=== PATIENT | male | born 1955 | race Caucasian/White ===

== ENCOUNTER → 2020-11-04 | Outpatient (CLI) | payer OTHER ==
[~2020-11-04] MED LIST: ADULT LOW DOSE81 MG PO; ALLEGRA-D 12 H1 EAC1 PO; ASPIRIN325 PO; CO Q-10100 MG PO; LIPITOR40 MG PO; NEXIUM; PLAVIX 75 MG TA75 MG PO; TRICOR; WELCHOL 625 MG625 MG PO
== END ==
LOC: SJCVC 09:55
PROVIDERS: ATTEND Internal Medicine Cardiovascular Disease
DX: I45.10 Unspecified right bundle-branch block (principal); R94.31 Abnormal electrocardiogram [ECG] [EKG]; I25.10 Atherosclerotic heart disease of native coronary artery without angina pectoris; I10 Essential (primary) hypertension; E78.00 Pure hypercholesterolemia, unspecified; E11.9 Type 2 diabetes mellitus without complications; Z79.84 Long term (current) use of oral hypoglycemic drugs; Z79.82 Long term (current) use of aspirin; Z79.899 Other long term (current) drug therapy

== ENCOUNTER → 2021-01-21 | Outpatient (CLI) | payer OTHER | LOC: SJCVC 08:37 | PROVIDERS: ATTEND Internal Medicine Cardiovascular Disease | DX: E78.00 Pure hypercholesterolemia, unspecified (principal); I25.10 Atherosclerotic heart disease of native coronary artery without angina pectoris; I10 Essential (primary) hypertension; E78.5 Hyperlipidemia, unspecified; Z79.82 Long term (current) use of aspirin; Z79.899 Other long term (current) drug therapy ==

== ENCOUNTER → 2021-05-01 | Outpatient (CLI) | payer OTHER | LOC: SJCVC 09:55 | PROVIDERS: ATTEND Internal Medicine Cardiovascular Disease | DX: E78.00 Pure hypercholesterolemia, unspecified (principal); I25.10 Atherosclerotic heart disease of native coronary artery without angina pectoris; I10 Essential (primary) hypertension; E78.5 Hyperlipidemia, unspecified; Z79.82 Long term (current) use of aspirin; Z79.899 Other long term (current) drug therapy ==

== ENCOUNTER → 2021-05-11 | Outpatient (CLI) | payer OTHER | LOC: SJCVCIMAG 07:22 | PROVIDERS: ATTEND Internal Medicine Cardiovascular Disease | DX: I45.10 Unspecified right bundle-branch block (principal); R00.0 Tachycardia, unspecified; R06.00 Dyspnea, unspecified; R53.83 Other fatigue; I10 Essential (primary) hypertension; I25.10 Atherosclerotic heart disease of native coronary artery without angina pectoris; E78.00 Pure hypercholesterolemia, unspecified; E11.9 Type 2 diabetes mellitus without complications; Z95.5 Presence of coronary angioplasty implant and graft; Z79.82 Long term (current) use of aspirin; Z79.84 Long term (current) use of oral hypoglycemic drugs; Z79.899 Other long term (current) drug therapy; Z82.49 Family history of ischemic heart disease and other diseases of the circulatory system ==

== ENCOUNTER 2021-05-19 07:56 | Observation (INO) | payer OTHER ==
[~2021-05-19] VITALS: Ht 175.3 cm; Wt 102.1 kg
[2021-05-19 08:14] VITALS: BP 136/58
[2021-05-19] MEDS ORDERED: DECARA1250 MCG PO (08:36)
[2021-05-19] MEDS ORDERED: METFORMIN HCL500 M3 PO (08:37)
[2021-05-19] MEDS ORDERED: COZAAR 25 MG TA25 M2 PO (08:37)
[2021-05-19] MEDS ORDERED: PRALUENT P75 MG/1 ML SUBQ (08:38)
[2021-05-19 12:40] VITALS: BP 142/88
[2021-05-19 13:15] VITALS: BP 148/90
[2021-05-19 14:30] VITALS: BP 132/88
--- NOTE | 2021-05-19 16:44 | CATHLAB ---
[facility] [employer] [place] [address] INVASIVE PROCEDURE REPORT Name: ROSA MARIA HINKLE Room #: 219-P ADM Jennifer M.R.#: [id number] Admission: 05/19/21 Attend Phys: Demarco Corey MD Discharge: Date of : 55 Report #: [id number] REPORT FOR: cc: DARYL DARBY FAM - No family physician/PCP Demarco Corey MD ~ APPROVED REPORT Study performed: 05/19/2021 09:17:59 Patient Details Patient Status: Out-Patient Room #: The patient is a 65 year-old male Event Personnel Demarco Corey Coiler, Eugenio Ferrell RTR Monitor, Ahsan Stroud RTR Scrub, Ashwini Carroll RN under presser Performed Art Access - R femoral artery* Left Heart Cath w/or w/o Coronaries [id number] [facility] Place w/wo Plasty Single CIRC [id number] Initial Mod Sed Same Phys/QHP Gr5y 679717 30075 Mod Sed Same Phys/QHP Ea [id number] Hemostasis w/ Mynx Indication Dyspnea, Positive stress test Risk Factors HypercholesterolemiaPhysical Activity, Coronary Artery DiseaseHypertension, Diabetes Previous Procedures/Diagnoses Previous PCI Procedure Narrative The Right Groin^ was infiltrated with 2% Lidocaine subcutaneous anesthesia. A PINNACLE 4FR Sheath #[id number] sheath was inserted into the RFA^. Coronary angiography was performed using coronary diagnostic catheters. The right coronary system was accessed and visualized with a 4FR JR4 catheter. The left coronary system was accessed and visualized with a 4FR JL5 catheter. The left ventricle was accessed and visualized with a 4FR JR4 catheter. Left ventricular/Aortic Valve gradient assessed via catheter pullback. Pre-demployment femoral angiogram was performed . Closure device was [facility] [place] [address] INVASIVE PROCEDURE REPORT Name: ROSA MARIA HINKLE Room #: 219-P [facility] IN ..#: [id number] Admission: 05/19/21 Attend Phys: Demarco Corey MD Discharge: Date of : 55 Report #: [id number] deployed with a 6 Fr MYNXGRIP 6/7F #[id number]. Hemostasis was obtained with manual pressure following sheath removal without any complications. The patient tolerated the procedure well and there were no complications associated with the procedure. There was no hematoma. After diagnostic images obtained, sheath was exchanged for a 6FR Kent Sheath. Intraoperative Conscious Sedation Sedation start time: 1021 Case end Time: 1117 Fentanyl 100 mcg Versed 2 mg Fluoro Time: 9.70 minutes Dose: DAP 38694.40 cGycm2 3574 mGy Contrast Type and Amount: Omnipaque 180 ml Coronary Angiography The patient's coronary anatomy is right dominant. Diagnostic Cath Left Main Left main artery is a large-caliber vessel, patent with no flow-limiting lesions. LAD The proximal LAD segment is ectatic. There is a mild stenosis at the ostium. There is mild diffuse disease with calcification in the midsegment. The distal LAD wraps around the apex. Diagonal 1 This is a small caliber vessel with severe proximal stenosis. This is unchanged from prior cardiac catheterizations. Diagonal 2 There is a small to moderate-sized caliber vessel, patent with no flow-limiting lesions. Circumflex The left circumflex artery is a moderate-sized caliber vessel, there are some ectatic segments in the distal region. There is a severe stenosis in the midsegment, 80%. OM1 There is a moderate-sized caliber vessel, patent with no flow-limiting lesions. OM2 This is a small to moderate-sized caliber vessel, originates from the distal left circumflex. This vessel is patent with no flow-limiting lesions. OM3 There is a small to moderate-sized caliber vessel, patent with no flow-limiting lesions. Right Coronary There is a patent stent in the proximal segment. There were ectatic regions in the proximal and mid segments. R PDA There is a small to moderate-sized caliber vessel, patent with no flow-limiting lesions. RPLV There is a small to moderate-sized caliber vessel, patent with no flow-limiting lesions. [facility] [address] [place] [address] INVASIVE PROCEDURE REPORT Name: ROSA MARIA HINKLE Room #: 219-P [facility] IN M.R.#: [id number] Admission: 05/19/21 Attend Phys: Demarco Corey MD Discharge: Date of : 55 Report #: [id number] Left Ventriculography Left Ventriculography was not performed. Ejection Fraction was >55% based off patient's Nuclear Cardiac Stress Test. An LVEDP was measured and there is no gradient across the outflow tract. Hemodynamics The aortic pressure is 134/87 mmHg with a mean of 109 mmHg. The left ventricular pressure is 111/16 mmHg with a mean of mmHg. The left ventricular end diastolic pressure is 24 mmHg. Pullback from the left ventricle to the aorta revealed a mm gradient across the aortic valve. PCI Technique Lesion Anticoagulation was achieved with Angiomax Drip. Percutaneous coronary intervention was performed on the mid circumflex artery segment. The lesion stenosis prior to intervention was 80% with ELIJAH 3 flow. A VISTA 6FR XB 4 #[id number] Guide Catheter was used to engage the ostium. A Luge Wire .014 x 182CM #[id number] Interventional Guidewire was used to cross the lesion. BALLOON DILATION A Balloon catheter Euphora RX 2.5 x 12 #[id number] was inserted and inflated up to 12.00atm for 20seconds. STENT DEPLOYMENT A drug-eluting stent XIENCE CHELSEA RX 3.25 X 15 #[id number] was inserted and inflated up to 16.00atm for 24seconds. POST STENT DEPLOYMENT BALLOON DILATION A Balloon catheter Euphora NC RX 3.25 x 12 #[id number] was inserted and inflated up to 18.00atm for 14seconds. Additional Inflation: 18.00atm for 14seconds. Final angiography reveals 5 % stenosis with ELIJAH 3 flow. Conclusion 1. Successful insertion of a drug-eluting stent into the mid segment of the left circumflex artery. 2. There is a patent stent in the proximal RCA. 3. There are ectatic segments in the epicardial vessels. 4. There is a severe occlusion in a small first diagonal artery, this is unchanged from prior cardiac catheterizations. Recommend medical therapy. [facility] [address] [place] [address] INVASIVE PROCEDURE REPORT Name: ROSA MARIA HINKLE Room #: 219-P ADM IN .R.#: [id number] Admission: 05/19/21 Attend Phys: Demarco Corey MD Discharge: Date of : 55 Report #: [id number] 5. Recommend dual antiplatelet therapy and aggressive risk factor management. <ELECTRONICALLY SIGNED> By: Demarco Corey MD 05/19/211642 42 42 Demarco Corey MD /INF
--- NOTE | 2021-05-19 17:20 | NUR ---
PT TO THE UNIT FROM THE CERTIFIED PEDIATRIC NURSE PRACTITIONER. ADMISSION HISTORY AND ASSESSMENT CHARTED - GROIN HAS REMAINED STABLE VSS. NO CO'S OF PAIN OR NAUSEA. EUGENE DIET AND FLUIDS. PT HAS BEEN MOVING AROUND IN BED. IV FLUIDS ORDERED. AT THE BEDSIDE - NO CO'S AT THE PRESENT TIME,
[2021-05-19 19:10] VITALS: BP 150/85
[2021-05-19 23:48] VITALS: BP 124/67
--- NOTE | 2021-05-20 03:56 | NUR ---
ASSESSMENTS CHARTED, MEDS CHARTED GIVEN. PATIENT RESTING IN BED DURING SHIFT. UP AT SUSHIL NEEDED. OFF BEDREST PRIOR TO SHIFT CHANGE. RIGHT GROIN SITE IS SOFT AND INTACT. PATIENT RECEIVED STENT TO MID CIRC. POST PROCEDURE FLUIDS WERE FINISHED AND DISCONNECTED. PATIENT IS CONCERNED ABOUT BEING ABLE TO PARTICIPATE IN [employer] T[employer]RNAMENT IN TWO WEEKS AND PLANS ON GETTING SOME SWINGS IN PRIOR TO THE TOURNEY. PATIENT DENIES PAIN. FALL PRECAUTIONS IN PLACE DURING SHIFT.
[2021-05-20 03:59] VITALS: BP 109/69
[2021-05-20 07:17] VITALS: BP 141/96
[2021-05-20] MEDS ORDERED: EFFIENT10 MG PO ×2 (07:38→08:22)
--- NOTE | 2021-05-20 08:57 | EKG ---
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 : 1955 Requested By: Demarco Corey Order Number: [id number] MD: Tj Rodriguez Measurements Intervals [place] Rate: 67 P: 50 WI: 174 QRS: -23 QRSD: 144 T: 1 QT: 413 QTc: 436 Interpretive Statements Sinus rhythm Right bundle branch block Compared to ECG 05/22/2010 08:53:15 Right bundle-branch block now present Sinus bradycardia no longer present Electronically Signed On 05-20-2021 8:57:44 CDT by Tj Rodriguez [email or web address] <ELECTRONICALLY SIGNED> By: Tj Rodriguez MD, [facility] 05/20/21 0857 7 7 Tj Rodriguez MD, FACC /EPI
[2021-05-20 10:00] LABS: CALCIUM 9.1 mg/dL (8.5-10.1); CREATININE 1.1 mg/dL (0.7-1.3); POTASSIUM 4.4 mmol/L (3.5-5.1)
[2021-05-20 10:05] VITALS: BP 141/96
--- NOTE | 2021-05-20 11:25 | NUR ---
RECEIVED THE PATIENT CONSCIOUS AND ORIENTED. ON ROOM AIR BREATHING SPONTANEOUSLY.NOT IN PAIN OR DISTRESS.ALL NEEDS ATTENDED.DISCHARGE PACKET GIVEN TO THE PATIENT AND EVERYTHING WAS EXPLAINED.EDUCATED ABOUT THE RIGHT GROIN CARE.DISCHARGED PATIENT FROM THE HOSPITAL ON STABLE CONDITION.
== END 2021-05-20 11:05 | disposition home or self-care (01) ==
LOC: CATH 07:56 → 2N 12:38
PROVIDERS: Nurse Practitioner; ADMIT Internal Medicine Cardiovascular Disease; ATTEND Internal Medicine Cardiovascular Disease
DX: I25.110 Atherosclerotic heart disease of native coronary artery with unstable angina pectoris (principal); I10 Essential (primary) hypertension; E11.9 Type 2 diabetes mellitus without complications; E78.5 Hyperlipidemia, unspecified; Z79.82 Long term (current) use of aspirin; Z79.899 Other long term (current) drug therapy

== ENCOUNTER → 2021-06-04 | Outpatient (CLI) | payer OTHER ==
[~2021-06-04] MED LIST changes: +COZAAR 25 MG TA25 M2 PO; +DECARA1250 MCG PO; +EFFIENT10 MG PO; +METFORMIN HCL500 M3 PO; +PRALUENT P75 MG/1 ML SUBQ
== END ==
LOC: SJCVC 14:45
PROVIDERS: ATTEND Internal Medicine Cardiovascular Disease
DX: R94.31 Abnormal electrocardiogram [ECG] [EKG] (principal); I45.2 Bifascicular block; R00.1 Bradycardia, unspecified; I25.10 Atherosclerotic heart disease of native coronary artery without angina pectoris; E78.00 Pure hypercholesterolemia, unspecified; E11.9 Type 2 diabetes mellitus without complications; I10 Essential (primary) hypertension; Z79.82 Long term (current) use of aspirin; Z79.84 Long term (current) use of oral hypoglycemic drugs; Z79.899 Other long term (current) drug therapy

== ENCOUNTER → 2021-09-21 | Outpatient (CLI) | payer OTHER | LOC: SJCVC 13:07 | PROVIDERS: ATTEND Internal Medicine Cardiovascular Disease | DX: R94.31 Abnormal electrocardiogram [ECG] [EKG] (principal); I45.10 Unspecified right bundle-branch block; I25.10 Atherosclerotic heart disease of native coronary artery without angina pectoris; E78.00 Pure hypercholesterolemia, unspecified; E11.9 Type 2 diabetes mellitus without complications; I10 Essential (primary) hypertension; R00.1 Bradycardia, unspecified; Z79.82 Long term (current) use of aspirin; Z79.84 Long term (current) use of oral hypoglycemic drugs; Z79.899 Other long term (current) drug therapy; Z82.49 Family history of ischemic heart disease and other diseases of the circulatory system ==